=== PATIENT | female | born 1980 | race Caucasian/White ===

== ENCOUNTER 2019-11-20 15:11 | Emergency (ER) | payer OTHER, BC ==
[~2019-11-20] VITALS: Ht 162.6 cm; Wt 75.7 kg
[2019-11-20 15:13] VITALS: BP 116/70
--- NOTE | 2019-11-20 15:20 | NUR ---
STEVE CASTRO AT BEDSIDE
--- NOTE | 2019-11-20 15:57 | NUR ---
C/O MID CHEST PAIN S/P TC X TODAY. PT WAS A [employer], [employer] NO [employer]PL[employer]MENT. PD WAS ON SCENE.
[2019-11-20] MEDS ORDERED: ACETAMINOPHEN EXTRA STRENGTH 500 MG TAB PO ONE (16:00)
[2019-11-20 17:00] VITALS: BP 116/70
--- NOTE | 2019-11-20 17:20 | NUR ---
Patient discharged with v/s stable. Written and verbal after care instructions given and explained. Patient alert, oriented and verbalized understanding of instructions. Ambulatory with steady gait. All questions addressed prior to discharge. ID band removed. Patient advised to follow up with PMD. Rx of TYLENOL & MOTRIN given. Patient educated on indication of medication including possible reaction and side effects. Opportunity to ask questions provided and answered.
== END 2019-11-20 17:20 | disposition home or self-care (01) ==
LOC: MED 15:11
DX: S20.219A Contusion of unspecified front wall of thorax, initial encounter (principal); V89.2XXA Person injured in unspecified motor-vehicle accident, traffic, initial encounter; Y93.89 Activity, other specified; Y92.89 Other specified places as the place of occurrence of the external cause; Y99.8 Other external cause status
CPT/HCPCS: 71045; 99283